=== PATIENT | female | born 1985 | race Caucasian/White ===

== ENCOUNTER 2016-04-29 15:48 | Emergency (ER) | payer OTHER ==
[~2016-04-29] VITALS: Ht 170.2 cm; Wt 95.3 kg
[~2016-04-29 15:48] MED LIST: AMPICILLIN250 MG PO; DOCUSATE SODIU100 MG PO; IBUPROFEN800 MG PO; MASON NATURAL325 MG PO; PERCOCET 325 MG1 TA2 PO; URSODIOL PO; URSODIOL300 MG PO
--- NOTE | 2016-04-29 17:50 | RADIOLOGY REPORT ---
EXAMINATION: XR CHEST CLINICAL INFORMATION: Shortness of breath. Congestion. COMPARISON: Dictated report chest x-ray 09/02/2013. Images not available for review. TECHNIQUE: 2 views of the chest were obtained. FINDINGS: No significant abnormality is noted involving the heart, lungs, mediastinum, bony thorax or soft tissues. IMPRESSION: Unremarkable examination.
[2016-04-29] MEDS ORDERED: DELTASONE20 MG PO (17:55)
[2016-04-29] MEDS ORDERED: AMOXICILLIN500 M3 PO (17:55)
--- NOTE | 2016-04-29 17:56 | ED DYSPNEA/ASTHMA COMPLAINT ---
History of Present Illness General Chief Complaint: Wheezing/Asthma Stated Complaint: ASTHMA Source: patient Exam Limitations: no limitations Vital Signs & Intake/Output Vital Signs & Intake/Output Vital Signs Date Time Temp Pulse Resp B/P Pulse O2 O2 Flow FiO2 Ox Delivery Rate 04/29 1757 98.9 89 20 115/67 99 Room Air 04/29 1756 99 04/29 1604 96.3 93 20 116/78 100 Room Air Room Air Allergies Coded Allergies: NO KNOWN ALLERGIES (02/10/11) Reconcile Medications Amoxicillin 500 MG TABLET 1 TAB PO TID SINUSITIS AMPICILLIN TRIHYDRATE (Ampicillin Trihydrate) 250 MG CAPSULE 1 TAB PO Q6 ANTIBIOTIC, INFECTION Docusate Sodium 100 MG SGL 100 MG PO BID PRN STOOL SOFTENER Ferrous Sulfate 325 MG (65 MG IRON) TABLET 1 TAB PO BID ANEMIA Ibuprofen 800 MG TABLET 800 MG PO Q6P PRN PAIN SCALE 4-6 OXYCODONE HCL/ACETAMINOPHEN (Percocet 5-325 MG Tablet) 325 MG/5 MG TAB 1-2 TAB PO Q4-6 PRN PRN PAIN Prednisone (Deltasone) 20 MG TABLET 1 TAB PO DAILY ASTHM Triage Note: PT TO ED WITH C/O BACK PAIN, "THEN I GOT MY PERIOD SO I THOUGHT IT WAS THAT", "NOW I THINK I HAVE FLUID IN MY LUNGS, TAKING INHALER WAY TOO MUCH, NOT DOING ANYTHING". O2 SATS WHILE TALKING 100%. Triage Nurses Notes Reviewed? yes Onset: Abrupt Duration: hour(s): Timing: recent history Severity: moderate : No Patient currently breastfeeds: No HPI: 30-year-old female comes into emergency room for further evaluation of asthma attack that occurred earlier prior to arrival. Patient reports that she was on her way home driving and she was feeling shortness of breath with some chest tightness and wheezing. Patient reports that she used her albuterol pump multiple times but was not improving so she came to the hospital for further evaluation. Patient felt like her throat was closing up at that time. Patient reports that this time she has resolution of symptoms and no longer has any difficulty breathing chest tightness or feeling like her throat was closing. She's been sick with some upper respirations symptoms sinus pressure or congestion. Patient reports that she's had some myalgias and body aches for the past. (ANA DEL CASTILLO,DELILAH) Past History Travel History Traveled to [place] past 21 day No Medical History Any Pertinent Medical History? see below for history Neurological: NONE EENT: NONE Cardiovascular: NONE Respiratory: asthma Gastrointestinal: umbilical hernia Hepatic: NONE Renal: NONE Musculoskeletal: NONE Psychiatric: anxiety Endocrine: NONE Blood Disorders: NONE Cancer(s): NONE RCP/Reproductive: NONE Surgical History Surgical History: non-contributory Psychosocial History Who do you live with Patient/Self What is your primary language Welsh Tobacco Use: Never used ETOH Use: denies use Illicit Drug Use: denies illicit drug use Family History Hx Contributory? No (DELILAH BELLA) Review of Systems Review of Systems Constitutional: Reports: no symptoms. EENTM: Reports: see HPI. Respiratory: Reports: see HPI. Cardiovascular: Reports: see HPI. GI: Reports: no symptoms. Genitourinary: Reports: no symptoms. Musculoskeletal: Reports: no symptoms. Skin: Reports: no symptoms. Neurological/Psychological: Reports: no symptoms. Hematologic/Endocrine: Reports: no symptoms. Immunologic/Allergic: Reports: no symptoms. All Other Systems: Reviewed and Negative (DELILAH BELLA) Physical Exam Physical Exam General Appearance: well developed/nourished, no apparent distress, alert Head: atraumatic, normal appearance Eyes: Bilateral: normal appearance, EOMI. Ears, Nose, Throat: normal pharynx, normal ENT inspection, hearing grossly normal Neck: normal inspection Respiratory: normal breath sounds, no respiratory distress Cardiovascular: regular rate/rhythm Extremities: normal inspection Neurologic/Psych: awake, alert, oriented x 3, normal gait Skin: intact, normal color Core Measures ACS in differential dx? No Severe Sepsis Present: No Septic Shock Present: No All Positive = PERC Ruled Out: Negative: age < 50 years, heart rate < 100 bpm, O2 sat > 94%, no hemoptysis, no hormone use, no prior DVT or PE, no unilateral leg swellin, no surgery/trauma w/ in 4w. Wells Criteria Score: 0 (DELILAH BELLA) Progress Differential Diagnosis: asthma, AMI, bronchitis, costochondritis, CHF, COPD, musculoskeletal pain, pericarditis, pulmonary embolism, pneumonia, pneumothorax, rib fracture, unstable angina Plan of Care: Orders Procedure Date/time Status URINE 04/29 1606 Complete Laboratory Tests 04/29/16 1615: Urine Test NEGATIVE Diagnostic Imaging: Viewed by Me: Radiology Read. Discussed w/RAD: Radiology Read. Radiology Impression: SERVICE DATE: 04/29/16 EXAM TYPE: RAD - XRY-CHEST XRAY, PA AND LATERAL EXAMINATION: XR CHEST CLINICAL INFORMATION: Shortness of breath. Congestion. COMPARISON: Dictated report chest x-ray 09/02/2013. Images not available for review. TECHNIQUE: 2 views of the chest were obtained. FINDINGS: No significant abnormality is noted involving the heart, lungs, mediastinum, bony thorax or soft tissues. IMPRESSION: Unremarkable examination. Initial ED EKG: none Comments: 04/29/2016 7:00:00 PM Patient clinically looks well in the room. She is in no apparent distress. Patient has resolution of symptoms. At this time symptoms are likely most consistent with either asthma attack that has resolved or possible panic attack. Her lungs are clear to auscultation at this time. There is no suspicion for pulmonary embolism. According to [facility] protocol she is ruled out with a negative Perc score and low probability well's criteria. I have no clinical suspicion for pulmonary embolism. No chest tightness. No concern for MD. Patient resting comfortably in room. Patient also has symptoms ago along with sinusitis/upper respiratory infection. Patient started on oral antibiotics. Low-dose prednisone. Patient instructed to follow up with primary care doctor. Patient understands and agrees with my plan of care and does not feel that she needs any further workup at this time and feels ready to go home. Patient will return if she has any worsening of symptoms at all. (ANA DEL CASTILLO,DELILAH) Departure Departure Disposition: HOME OR SELF CARE Condition: Stable Clinical Impression Primary Impression: Asthma Secondary Impressions: Sinusitis Referrals: CORINE HOPPER APRN (PCP/Family) Additional Instructions: Take prednisone and amoxicillin as prescribed. Rest. Flonase for congestion is needed. Return if any other concerns worsening symptoms. Please go over all results of today's visit with your primary care doctor. Contact your primary care doctor to let them know you were here in the emergency room. There may be nonspecific findings which may not be related to your visit today here in the emergency room but may require further evaluation and chronic monitoring by your primary care doctor. If you had a laceration today the chance of foreign body always remains. You should follow-up with your primary care doctor for recheck in 3-5 days for a wound check. If you had an x-ray done there is a chance that a fracture could have been missed on initial read and you should follow-up with your primary care doctor for repeat x-rays if symptoms persist. If your blood pressure was elevated here in the emergency room please have rechecked by her primary care doctor within the next 48 hours by your primary care doctor. If you were prescribed a narcotic here in the emergency room or any type of controlled substances you're not allowed to drive while taking this medication or operate any type of heavy machinery. Narcotics can make you feel lightheaded dizziness nausea and can cause constipation. You may need to pick up man a stool softener. Thank you for choosing [facility] emergency room. Please return to the emergency room immediately if you have any other concerns worsening of symptoms. Departure Forms: Customer Survey General Discharge Information Prescriptions: Current Visit Scripts Prednisone (Deltasone) 1 TAB PO DAILY #5 MG Amoxicillin 1 TAB PO TID #21 TAB (DELILAH BELLA) PA/RUBBER ROLLER GRINDER Co-Sign Statement Statement: ED Attending supervision documentation- [] I saw and evaluated the patient. I have also reviewed all the pertinent lab results and diagnostic results. I agree with the findings and the plan of care as documented in the PA's/RUBBER ROLLER GRINDER's documentation. [X] I have reviewed the ED Record and agree with the PA's/RUBBER ROLLER GRINDER's documentation. [] Additions or exceptions (if any) to the PAs/RUBBER ROLLER GRINDER's note and plan are summarized below: [] (SHERIDAN ALVES,JASON) Critical Care Note Critical Care Note Critical Care Time: non-applicable (DELILAH BELLA)
[2016-04-29 17:57] VITALS: BP 115/67
== END 2016-04-29 18:05 ==
LOC: ERH 15:48
DX: J45.909 Unspecified asthma, uncomplicated (principal); J32.9 Chronic sinusitis, unspecified
CPT/HCPCS: 81025

== ENCOUNTER 2017-07-03 22:03 | Emergency (ER) | payer OTHER ==
[~2017-07-03] VITALS: Ht 170.2 cm; Wt 88.5 kg
[~2017-07-03 22:03] MED LIST changes: +AMOXICILLIN500 M3 PO; +DELTASONE20 MG PO; +ZOFRAN ODT4 M1 SL
[2017-07-03 22:10] VITALS: BP 125/72
== END 2017-07-03 23:18 | disposition admitted as inpatient to this hospital (09) ==
LOC: ERH 22:03
DX: R50.9 Fever, unspecified (principal); R11.2 Nausea with vomiting, unspecified
CPT/HCPCS: 87804; 87804-59; 99281

== ENCOUNTER 2017-07-16 18:48 | Emergency (ER) | payer OTHER ==
[~2017-07-16] VITALS: Ht 170.2 cm; Wt 86.2 kg
[2017-07-16 19:50] LABS: ABSOLUTE BASOPHIL COUNT 0 /CUMM (0.0-0.2); ABSOLUTE EOSINOPHIL COUNT 0.1 /CUMM (0.0-0.7); ABSOLUTE GRANULOCYTE CT 9.5 /CUMM (1.4-6.5); ABSOLUTE LYMPH COUNT 0.6 /CUMM (1.2-3.4); ABSOLUTE MONOCYTE COUNT 0.5 /CUMM (0.10-0.60); BASOPHIL % 0.3 % (0.0-2.0); EOSINOPHIL % 0.5 % (0-5); HEMATOCRIT 39.8 % (37-47); MEAN CORPUSCULAR HGB 30.1 PG (27.0-31.0); MEAN CORPUSCULAR HGB CONC 34.4 G/DL (33.0-37.0); MEAN CORPUSCULAR VOLUME 87.6 FL (81.0-99.0); MEAN PLATELET VOLUME 8.8 FL (7.4-10.4); PLATELET COUNT 270 /CUMM (130-400); RBC DISTRIBUTION WIDTH 12.6 % (11.5-14.5); RED BLOOD CELL CT 4.54 /CUMM (4.20-5.40); WHITE BLOOD CELL COUNT 10.7 /CUMM (4.8-10.8)
[2017-07-16 20:12] LABS: GRANULOCYTE % 88.9 % (42.2-75.2)
--- NOTE | 2017-07-16 20:26 | ED GI/GU/ABDOMINAL COMPLAINT ---
History of Present Illness General Chief Complaint: Abdominal Pain/Flank Pain Stated Complaint: ABDOMINAL PAIN Source: patient Exam Limitations: no limitations Vital Signs & Intake/Output Vital Signs & Intake/Output Vital Signs Date Time Temp Pulse Resp B/P B/P Pulse O2 O2 Flow FiO2 Mean Ox Delivery Rate 07/16 2226 79 20 108/56 97 Room Air 07/165 98.1 96 18 118/74 100 Room Air Allergies Coded Allergies: NO KNOWN ALLERGIES (02/10/11) Reconcile Medications Budesonide/Formoterol Fumarate (Symbicort 160-4.5 Mcg Inhaler) 160 MCG-4.5 MCG/ ACTUATION HFA.AER.AD 2 PUF INH BID SOB (Reported) Fluticasone Propionate 50 MCG/ACTUATION SPRAY.SUSP 2 SPRAY NASB DAILY CONGESTION (Reported) Meloxicam (Mobic) 15 MG TABLET 1 TAB PO DAILY PRN pain Ondansetron (Zofran Odt) 4 MG TAB.RAPDIS 1 TAB SL Q6P PRN NAUSEA/VOMITING Ondansetron (Zofran Odt) 4 MG TAB.RAPDIS 1 TAB SL TID PRN nausea Ursodiol 1 POW POW 600 MG PO BID CHOLESTASIS OF (Reported) Triage Note: PT TO ED C/O SHARP, SUDDEN ONSET UPPER/LUQ PAIN WITH +N/V SINCE 5 PM TODAY. PMH OF MULTIPLE ABD SURGERIES. PAIN WORSE WITH PALPATION. +PAIN/URGENCY WITH URINATION. PAIN FEELS "BETTER AFTER VOMITTING" 3 BM'S TODAY, STATES NOT DIARRHEA. HAS IUD "A LITTLE LATE FOR PERIOD" Triage Nurses Notes Reviewed? yes ? n Is pt currently ? No Onset: Just prior to arrival Duration: hour(s): Timing: single episode today Quality/Severity: stabbing Location: periumbilical Radiation: RUQ HPI: 31YO female with hx of periumbilcal hernia repair 2014, s/p cholecystectomy presents to ED complaining of stabbing abdominal pain beginning around 5PM today. Pain is describes as left upper quadrant, sharp, constant. Patient also reports associated nausea and nonbilious, nonbloody vomiting x 4 episodes today. She reports loose stools, LBM today. She also notes dysuria and urinary frequency beginning today. The patient denies fevers, chills, sick contact, change in diet. (Alyssa DEL CASTILLODonna) Past History Travel History Traveled to [place] past 21 day No Medical History Any Pertinent Medical History? see below for history Neurological: NONE EENT: NONE Cardiovascular: NONE Respiratory: asthma Gastrointestinal: umbilical hernia Hepatic: NONE Renal: NONE Musculoskeletal: NONE Psychiatric: anxiety Endocrine: NONE Blood Disorders: NONE Cancer(s): NONE DELIVERY TRUCK DRIVER/Reproductive: NONE, [place] Surgical History Surgical History: cholecystectomy, hernia repair-umbilical Psychosocial History Who do you live with Patient/Self What is your primary language [place] Tobacco Use: Quit >30 days ago ETOH Use: occasional use Illicit Drug Use: denies illicit drug use Family History Hx Contributory? No (Donna Vazquez) Review of Systems Review of Systems Constitutional: Reports: no symptoms. EENTM: Reports: no symptoms. Respiratory: Reports: no symptoms. Cardiovascular: Reports: no symptoms. GI: Reports: see HPI. Genitourinary: Reports: see HPI. Musculoskeletal: Reports: no symptoms. Skin: Reports: no symptoms. Neurological/Psychological: Reports: no symptoms. Hematologic/Endocrine: Reports: no symptoms. Immunologic/Allergic: Reports: no symptoms. All Other Systems: Reviewed and Negative (Donna Vazquez) Physical Exam Physical Exam General Appearance: well developed/nourished, no apparent distress, alert, awake Head: atraumatic, normal appearance Eyes: Bilateral: normal appearance. Ears, Nose, Throat, Mouth: hearing grossly normal Neck: normal inspection, supple, full range of motion Respiratory: normal breath sounds, no respiratory distress, lungs clear Cardiovascular: regular rate/rhythm Gastrointestinal: normal bowel sounds, soft, no organomegaly, LUQ tenderness Back: normal inspection, normal range of motion Extremities: normal range of motion Neurologic/Psych: awake, alert, oriented x 3 Skin: intact, normal color, warm/dry Core Measures ACS in differential dx? No Sepsis Present: No Sepsis Focused Exam Completed? No (Donna Vazquez) Progress Differential Diagnosis: appendicitis, bowel obstruction, diverticulitis, ectopic , gastritis, hernia, kidney stone, SBO, UTI/pyelo Plan of Care: Orders Procedure Date/time Status Add-on Test (ER Only) 07/17 2223 Active CULTURE,URINE 07/16 1946 Active URINALYSIS 07/17 1915 Complete LIPASE 07/17 1915 Complete LACTIC ACID 07/17 1915 Complete HUMAN BETA HCG SCREEN 07/17 1915 Complete COMPREHENSIVE METABOLIC PANEL 07/17 1915 Complete CBC WITHOUT DIFFERENTIAL 07/17 1915 Complete AMYLASE 07/17 1915 Complete Laboratory Tests 07/16/172215: Lactic Acid Cancelled 07/16/171946: Urine Color YEL, Urine Clarity CLEAR, Urine pH 8.5 H, Ur Specific Marine 1.010 , Urine Protein 30 H, Urine Ketones 15 H, Urine Nitrite NEG, Urine Bilirubin NEG, Urine Urobilinogen 2.0 H, Ur Leukocyte Esterase TRACE H, Ur Microscopic SEDIMENT EXAMINED, Urine RBC RARE, Urine WBC RARE, Ur Epithelial Cells MOD H, Urine Bacteria MOD H, Urine Hemoglobin NEG, Urine Glucose NEG 07/16/171929: Anion Gap 13, Estimated GFR > 60, BUN/Creatinine Ratio 20.0, Glucose 93, Lactic Acid 1.0, Calcium 9.3, Total Bilirubin 2.1 H, AST 158 H, ALT 73 H, Alkaline Phosphatase 88, Total Protein 7.8, Albumin 4.6, Globulin 3.2, Albumin/Globulin Ratio 1.4, Amylase 83, Lipase 226, Total Beta HCG NEGATIVE, CBC w Diff NO MAN DIFF REQ, RBC 4.54, MCV 87.6, MCH 30.1, MCHC 34.4, RDW 12.6, MPV 8.8, Gran % 88.9 H, Lymphocytes % 6.1 L, Monocytes % 4.2, Eosinophils % 0.5, Basophils % 0.3, Absolute Granulocytes 9.5 H, Absolute Lymphocytes 0.6 L, Absolute Monocytes 0.5, Absolute Eosinophils 0.1, Absolute Basophils 0 Microbiology 07/16 1946 URINE ROUT: Urine Culture - RECD UA shows no significant evidence for acute UTI. Patient's labs show mildly elevated bilirubin. Patient also has mildly elevated liver enzymes, compared to previous studies liver function tests are stable. Patient feels improvement following IV morphine and IV Zofran, no further episodes of vomiting here in the emergency department. Patient's CT scan shows fat-containing hernia without other acute abnormality. Patient tolerating by mouth here in the emergency department. Patient to follow-up with gastroenterology and have repeat bilirubin test. She was given strict return precautions. Patient is in no acute distress, nontoxic appearing, vital signs are stable. Patient agrees the plan of care. The patient was discussed with Dr. Ying who agrees with this plan. Diagnostic Imaging: Viewed by Me: CT Scan. Discussed w/RAD: CT Scan. Radiology Impression: PATIENT: RAFFY MOORE PRESENT AGE: 31 PATIENT ACCOUNT NO: [id number] : 83 LOCATION: [facility] ORDERING PHYSICIAN: Erickson DEL CASTILLO SERVICE DATE: 07/16/17 EXAM TYPE : CAT - CT ABD & PELVIS W IV CONTRAST EXAMINATION: CT ABDOMEN AND PELVIS WITH CONTRAST CLINICAL INFORMATION: Left lower quadrant pain. COMPARISON: 07/23/2014. TECHNIQUE: Contiguous axial thin section helical images of the abdomen and pelvis were performed following the administration of 95 mL of intravenous Optiray 320. The data set was reformatted in the coronal and sagittal planes and reviewed on an independent workstation. DLP: 361 mGy-cm. FINDINGS: The visualized lung bases are clear. The visualized portions of the heart are unremarkable. The liver is of normal size and attenuation without focal lesions nor intrahepatic biliary ductal dilation. The patient is status post cholecystectomy. The spleen, pancreas, adrenal glands are unremarkable. Both kidneys are of normal size and attenuation without hydronephrosis or nephrolithiasis. Following the administration of IV contrast, prompt symmetric nephrograms are displayed. There is no abdominal free fluid. There is neither mesenteric nor retroperitoneal lymphadenopathy. Status post repair, there is a recurrent fat-containing midline ventral hernia just superior to the umbilicus. Normal unopacified loops of small and large bowel are identified. There is no pelvic free fluid. The urinary bladder is unremarkable. 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 There is neither pelvic nor inguinal lymphadenopathy. Bone windows: Neither sclerotic nor lytic bone lesions are identified. IMPRESSION: No evidence for acute abdominal or pelvic inflammatory or infectious processes. Fat-containing ventral hernia just superior to the umbilicus. DICTATED BY: Shekhar Trejo MD DATE/TIME DICTATED:07/16/172112 STORAGE GARAGE ATTENDANT:DARLENE DATE/TIME TRANSCRIBED:07/16/172112 CONFIDENTIAL, DO NOT COPY WITHOUT APPROPRIATE AUTHORIZATION. <Electronically signed in Other Vendor System> SIGNED BY: Shekhar Trejo MD 07/16/172119 Initial ED EKG: none (Alyssa DEL CASTILLO,Donna Etienne) Departure Departure Disposition: HOME OR SELF CARE Condition: Stable Clinical Impression Primary Impression: Abdominal pain Qualifiers: Abdominal location: left upper quadrant Qualified Code: R10.12 - Left upper quadrant pain Secondary Impressions: Nausea & vomiting Qualifiers: Vomiting type: unspecified Vomiting Intractability: non-intractable Qualified Code: R11.2 - Nausea with vomiting, unspecified Referrals: Emmie ALVES,Genevieve Verdin APRN (PCP/Family) Additional Instructions: Take Zofran as prescribed as needed for nausea. Take meloxicam as prescribed as needed for pain. Follow-up with gastroenterology. It Is recommended you have urine bilirubin level checked in the next two weeks. If you have worsening or persistent symptoms please return to emergency department. Please note that there might be incidental findings in your evaluation that are unrelated to the current emergency department visit. Please notify your primary care doctor about this emergency department visit in order to obtain and review all of the testing performed so that these incidental findings can be monitored as needed. If you had an x-ray performed, please understand that some fractures may not be seen on the initial set of x-rays. If your symptoms persist you might need a repeat set of x-rays to check for such a fracture. If you had a laceration evaluated, please understand that foreign bodies such as glass or wood may not be visible to the naked eye or on plain x-rays. If the wound becomes red, swollen, increasingly more painful or if there is any drainage from the wound, please have it reevaluated by a physician for the possibility of a retained foreign body. If you're unable to follow up as outlined in the discharge instructions please return to the emergency department. Thank you for choosing the [facility] Emergency Department for your care. It was a pleasure to serve you today. Departure Forms: Customer Survey General Discharge Information Prescriptions: Current Visit Scripts Ondansetron (Zofran Odt) 1 TAB SL TID PRN nausea #10 TAB Meloxicam (Mobic) 1 TAB PO DAILY PRN pain #30 TAB (Alyssa DEL CASTILLO,Donna Etienne) PA/DISTANCE LEARNING ADMINISTRATOR Co-Sign Statement Statement: ED Attending supervision documentation- [] I saw and evaluated the patient. I have also reviewed all the pertinent lab results and diagnostic results. I agree with the findings and the plan of care as documented in the PA's/DISTANCE LEARNING ADMINISTRATOR's documentation. [x] I have reviewed the ED Record and agree with the PA's/DISTANCE LEARNING ADMINISTRATOR's documentation. [] Additions or exceptions (if any) to the PAs/DISTANCE LEARNING ADMINISTRATOR's note and plan are summarized below: [] (Stepan ALVES,Jamie Amato)
--- NOTE | 2017-07-16 21:20 | CT SCAN REPORT ---
EXAMINATION: CT ABDOMEN AND PELVIS WITH CONTRAST CLINICAL INFORMATION: Left lower quadrant pain. COMPARISON: 07/23/2014. TECHNIQUE: Contiguous axial thin section helical images of the abdomen and pelvis were performed following the administration of 95 mL of intravenous Optiray 320. The data set was reformatted in the coronal and sagittal planes and reviewed on an independent workstation. DLP: 361 mGy-cm. FINDINGS: The visualized lung bases are clear. The visualized portions of the heart are unremarkable. The liver is of normal size and attenuation without focal lesions nor intrahepatic biliary ductal dilation. The patient is status post cholecystectomy. The spleen, pancreas, adrenal glands are unremarkable. Both kidneys are of normal size and attenuation without hydronephrosis or nephrolithiasis. Following the administration of IV contrast, prompt symmetric nephrograms are displayed. There is no abdominal free fluid. There is neither mesenteric nor retroperitoneal lymphadenopathy. Status post repair, there is a recurrent fat-containing midline ventral hernia just superior to the umbilicus. Normal unopacified loops of small and large bowel are identified. There is no pelvic free fluid. The urinary bladder is unremarkable. 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 There is neither pelvic nor inguinal lymphadenopathy. Bone windows: Neither sclerotic nor lytic bone lesions are identified. IMPRESSION: No evidence for acute abdominal or pelvic inflammatory or infectious processes. Fat-containing ventral hernia just superior to the umbilicus.
[2017-07-16] MEDS ORDERED: ZOFRAN ODT4 M1 SL (22:14)
[2017-07-16] MEDS ORDERED: MOBIC15 M1 PO (22:14)
[2017-07-16 22:26] VITALS: BP 108/56
[2017-07-16] MEDS ORDERED: FLUTICASONE PRO16 GM NASB (22:26)
[2017-07-16] MEDS ORDERED: SYMBICORT 16010.2 GM INH (22:26)
== END 2017-07-16 22:27 ==
LOC: ERH 18:48
PROVIDERS: Physician Assistant Medical
DX: R10.12 Left upper quadrant pain (principal); R11.2 Nausea with vomiting, unspecified
CPT/HCPCS: 74177; 81001; 87086; 96374; 96375; J2405